=== PATIENT | female | born 1980 | race Native Hawaiian/Other Pacific Islander ===

== ENCOUNTER 2019-03-12 07:56 | Day surgery (SDC) | payer OTHER ==
[~2019-03-12] VITALS: Ht 172.7 cm; Wt 113.4 kg
== END 2019-03-12 09:32 | disposition home or self-care (01) ==
LOC: OR 07:56
PROC: 009U3ZX Drainage of Spinal Canal, Percutaneous Approach, Diagnostic (ICD-10-PCS; principal; 2019-03-12)
PROC: B01BYZZ Fluoroscopy of Spinal Cord using Other Contrast (ICD-10-PCS; 2019-03-12)
DX: R51 Headache (principal)
CPT/HCPCS: 82945; 84155; 86592; 87070; 87101; 87116; 87205; 87206; 87899; 89050

== ENCOUNTER 2019-08-26 07:40 | Day surgery (SDC) | payer OTHER ==
[2019-07-22 08:37] LABS: PLATELET COUNT 240 K/uL (152-353)
[2019-07-22 09:00] LABS: POTASSIUM 3.9 mmol/L (3.6-5.2)
[2019-08-26 08:47] LABS: POTASSIUM 3.5 mmol/L (3.6-5.2)
[2019-08-26 08:50] LABS: PLATELET COUNT 202 K/uL (152-353)
== END 2019-08-26 11:57 | disposition home or self-care (01) ==
LOC: OR 07:40
PROVIDERS: Pain Medicine Interventional Pain Medicine
PROC: 00HU3MZ Insertion of Neurostimulator Lead into Spinal Canal, Percutaneous Approach (ICD-10-PCS; principal; 2019-08-26)
PROC: 4B01XVZ Measurement of Peripheral Nervous Stimulator, External Approach (ICD-10-PCS; 2019-08-26)
DX: M54.16 Radiculopathy, lumbar region (principal); M54.12 Radiculopathy, cervical region; G90.513 Complex regional pain syndrome I of upper limb, bilateral
CPT/HCPCS: 80053; 81025; 85027; J2001; J2250; J2405; J2704; J2765; J3490

== ENCOUNTER 2019-09-02 08:07 | Day surgery (SDC) | payer OTHER | END 2019-09-02 10:00 | disposition home or self-care (01) | LOC: OR 08:07 | PROC: 00PU3MZ Removal of Neurostimulator Lead from Spinal Canal, Percutaneous Approach (ICD-10-PCS; principal; 2019-09-02) | DX: M54.12 Radiculopathy, cervical region (principal); M54.16 Radiculopathy, lumbar region ==

== ENCOUNTER 2021-02-07 16:02 | Outpatient (CLI) | payer OTHER | END 2021-02-07 23:44 | disposition home or self-care (01) | LOC: CT 16:02 | PROVIDERS: ATTEND Neurological Surgery | DX: M54.16 Radiculopathy, lumbar region (principal) ==